=== PATIENT | male | born 1960 | race Caucasian/White ===

== ENCOUNTER 2024-01-07 19:59 | Emergency (ER) | payer OTHER ==
[~2024-01-07] VITALS: Ht 172.7 cm; Wt 72.6 kg
[2024-01-07] MEDS ORDERED: OLANZAPINE 10 MG VIAL IM ONE (21:31)
[2024-01-07] MEDS: OLANZAPINE 10 MG VIAL IM ONE (21:39)
[2024-01-07] MEDS ORDERED: LORAZEPAM INJ 2 MG/ML VIAL ONE (21:40)
[2024-01-07] MEDS: LORAZEPAM INJ 2 MG/ML VIAL IM ONE (21:43)
[2024-01-07 22:49] LABS: APPEARANCE,URINE CLEAR (CLEAR); BILIRUBIN,URINE NEGATIVE (NEGATIVE); BLOOD, URINE TRACE-INTA Ery/uL (NEGATIVE); COLOR,URINE OTHER (YELLOW); KETONES,URINE NEGATIVE (NEGATIVE); LEUKOCYTE ESTERASE ,URINE 3+ (NEGATIVE); NITRITE, URINE NEGATIVE (NEGATIVE); PROTEIN,URINE NEGATIVE (NEGATIVE); UGLUCOSE NEGATIVE (NEGATIVE); UROBILINOGEN,URINE 0.2 EU/dL (0.2)
[2024-01-07 23:12] LABS: AMPHETAMINE, URINE NEGATIVE (NEGATIVE); BARBITURATE, URINE NEGATIVE (NEGATIVE); BENZODIAZEPINE, URINE NEGATIVE (NEGATIVE); CANNABINOID, URINE NEGATIVE (NEGATIVE); COCCAINE, URINE NEGATIVE (NEGATIVE); OPIATE, URINE NEGATIVE (NEGATIVE); PHENCYCLIDINE SCREEN,URINE NEGATIVE (NEGATIVE)
[2024-01-07 23:33] LABS: BASOPHILS # (AUTO) 0.1 K/uL (0.0-0.2); BASOPHILS % (AUTO) 0.6 % (0.0-2.0); EOSINOPHILS # (AUTO) 0.4 K/uL (0.0-0.7); EOSINOPHILS % (AUTO) 3.3 % (0.0-6.0); HEMATOCRIT 33 % (39-51); HEMOGLOBIN 11.1 g/dL (13.5-17.5); LYMPHOCYTES # (AUTO) 1.2 K/uL (0.8-4.8); LYMPHOCYTES % (AUTO) 10.9 % (20.0-44.0); MEAN CORPUSCULAR HEMOGLOBIN 26 PG (26.0-33.0); MEAN CORPUSCULAR HGB CONC 33 g/dl (31.0-36.0); MEAN CORPUSCULAR VOLUME 78 fL (80-96); MONOCYTES # (AUTO) 0.6 K/uL (0.1-1.30); MONOCYTES % (AUTO) 5.7 % (2.0-12.0); NEUTROPHILS # (AUTO) 8.7 K/uL (1.8-8.9); NEUTROPHILS % (AUTO) 79.5 % (43.0-81.0); PLATELET COUNT (AUTO) 334 K/uL (150-450); RED BLOOD CELL COUNT(AUTO) 4.25 MIL/uL (4.5-6.0); RED CELL DISTRIBUTION WIDTH 15.9 % (11.5-15.0)
[2024-01-07 23:43] LABS: ADD URINE CULTURE YES; BACTERIA,URINE None seen /HPF (None Seen); RBC,URINE 0-2 /HPF (0-2); SQUAMOUS EPITHELIAL CELL,UR None Seen /HPF (None Seen)
[2024-01-07 23:45] LABS: CALCIUM, SERUM 8.9 mg/dL (8.5-10.1); CARBON DIOXIDE 32 mmol/L (21-32); CHLORIDE 106 mmol/L (98-107); CREATININE 1.3 mg/dL (0.6-1.3); GLUCOSE 165 mg/dL (74-106); POTASSIUM 3.6 mmol/L (3.5-5.1); SODIUM SERUM 142 mmol/L (136-145); UREA NITROGEN, BLOOD 17 mg/dL (7-18)
[2024-01-07 23:51] LABS: ALANINE AMINOTRANSFERASE 24 U/L (12-78); ALBUMIN 3.4 g/dL (3.4-5.0); ALKALINE PHOSPHATASE 84 U/L (46-116); ASPARTATE AMINOTRANSFERASE 12 U/L (15-37); BILIRUBIN,DIRECT 0.1 mg/dL (0.0-0.2); BILIRUBIN,TOTAL 0.3 mg/dL (0.2-1.0)
[2024-01-07 23:52] LABS: ACETAMINOPHEN 0 ug/ml (10-30); ALCOHOL, BLOOD < 3 mg/dL (0-10); SALICYLATE 1.2 mg/dL (2.8-20.0)
[2024-01-08] MEDS: CEPHALEXIN MONOHYDRATE 500 MG CAPSULE PO ONE (00:30)
[2024-01-08] MEDS ORDERED: OLANZAPINE 10 MG VIAL IM ONE (05:45)
[2024-01-08] MEDS: OLANZAPINE 10 MG VIAL IM ONE (05:51)
[2024-01-08] MEDS ORDERED: diphenhydrAMINE HCL 50 MG/ML VIAL ONE (09:44)
[2024-01-08] MEDS ORDERED: LORAZEPAM INJ 2 MG/ML VIAL ONE (09:44)
[2024-01-08] MEDS: diphenhydrAMINE HCL 50 MG/ML VIAL IM ONE (09:54)
[2024-01-08] MEDS: LORAZEPAM INJ 2 MG/ML VIAL IM ONE (09:54)
[2024-01-08 10:45] VITALS: BP 138/90; TEMP 98.5; O2SAT 98
== END 2024-01-08 10:46 ==
LOC: ER 20:09
DX: F03.911 Unspecified dementia, unspecified severity, with agitation (principal); N39.0 Urinary tract infection, site not specified; E11.9 Type 2 diabetes mellitus without complications; F20.9 Schizophrenia, unspecified; R45.1 Restlessness and agitation; Z20.822 Contact with and (suspected) exposure to COVID-19
CPT/HCPCS: 99291; 96372 ×3; 85025; 80048; 87086; 80076; 81001; 36415; 87426; 80143; 80320; 80307; J2060 ×2; J3490 ×2; J1200; G0480

== ENCOUNTER 2024-12-18 14:07 | Inpatient (IN) | payer OTHER ==
[~2024-12-18] VITALS: Ht 172.7 cm; Wt 72.6 kg
[2024-12-18] MEDS: IV NS 0.9% 1,000 ML BAG IV ONE ×2 (14:40→16:05)
[2024-12-18 15:00] LABS: BASOPHILS # (AUTO) 0.1 K/uL (0.0-0.2); BASOPHILS % (AUTO) 0.5 % (0.0-2.0); HEMATOCRIT 26 % (39-51); HEMOGLOBIN 8.5 g/dL (13.5-17.5); LYMPHOCYTES # (AUTO) 0.9 K/uL (0.8-4.8); MEAN CORPUSCULAR HEMOGLOBIN 22 PG (26.0-33.0); MEAN CORPUSCULAR HGB CONC 32 g/dl (31.0-36.0); MEAN CORPUSCULAR VOLUME 68 fL (80-96); MONOCYTES # (AUTO) 0.5 K/uL (0.1-1.30); MONOCYTES % (AUTO) 2.8 % (2.0-12.0); NEUTROPHILS # (AUTO) 16.3 K/uL (1.8-8.9); NEUTROPHILS % (AUTO) 91.7 % (43.0-81.0); PLATELET COUNT (AUTO) 562 K/uL (150-450); RED BLOOD CELL COUNT(AUTO) 3.86 MIL/uL (4.5-6.0); RED CELL DISTRIBUTION WIDTH 18.6 % (11.5-15.0); WHITE BLOOD COUNT (AUTO) 17.8 K/uL (4.3-11.0)
[2024-12-18] MEDS: PANTOPRAZOLE 80 MG in IV NS 0.9% 100 ML IV ONE (15:05)
[2024-12-18 15:13] LABS: CALCIUM, SERUM 9.9 mg/dL (8.5-10.1); CARBON DIOXIDE 20 mmol/L (21-32); CHLORIDE 100 mmol/L (98-107); CREATININE 1.7 mg/dL (0.6-1.3); GLUCOSE 298 mg/dL (74-106); SODIUM SERUM 139 mmol/L (136-145); UREA NITROGEN, BLOOD 69 mg/dL (7-18)
[2024-12-18] MEDS ORDERED: CLOZ25TA4 PO (15:22)
[2024-12-18] MEDS ORDERED: GLIP5TAB13 PO (15:22)
[2024-12-18] MEDS ORDERED: LORA-258 PO (15:22)
[2024-12-18] MEDS ORDERED: ACET-73 PO (15:22)
[2024-12-18] MEDS ORDERED: POLY17PO4 PO (15:22)
[2024-12-18] MEDS ORDERED: MAGN400T30 PO (15:22)
[2024-12-18] MEDS ORDERED: METF-442 PO (15:22)
[2024-12-18] MEDS ORDERED: SENN-261 PO (15:22)
[2024-12-18] MEDS ORDERED: ERGO500093 PO (15:22)
[2024-12-18] MEDS ORDERED: INSU100V27 SQ (15:22)
[2024-12-18] MEDS ORDERED: CYAN500T9 PO (15:22)
[2024-12-18] MEDS ORDERED: DEXT38GE12 PO (15:22)
[2024-12-18] MEDS ORDERED: GLUC1KIT IM (15:22)
[2024-12-18] MEDS ORDERED: CLON0.1T PO (15:22)
[2024-12-18] MEDS ORDERED: LAMO150T2 PO (15:22)
[2024-12-18] MEDS ORDERED: LEVE500T9 PO (15:22)
[2024-12-18] MEDS ORDERED: AMLO-213 PO (15:22)
[2024-12-18] MEDS ORDERED: OMEG1CAP55 PO (15:22)
[2024-12-18] MEDS ORDERED: CLOZ100T32 PO (15:22)
[2024-12-18] MEDS ORDERED: LORA-259 PO (15:22)
[2024-12-18] MEDS ORDERED: LINA5TAB PO (15:22)
[2024-12-18] MEDS ORDERED: BISA10SU11 RC (15:22)
[2024-12-18] MEDS ORDERED: CRAN300T PO (15:22)
[2024-12-18] MEDS ORDERED: NA P133E RC (15:22)
[2024-12-18] MEDS ORDERED: ACET325T53 PO (15:22)
[2024-12-18] MEDS ORDERED: DOCU250C14 PO (15:22)
[2024-12-18] MEDS ORDERED: ATOR20TA PO (15:22)
[2024-12-18] MEDS ORDERED: MAGN400O6 PO (15:22)
[2024-12-18] MEDS ORDERED: DAPA10TA PO (15:22)
[2024-12-18 15:27] LABS: ALANINE AMINOTRANSFERASE 18 U/L (12-78); ALBUMIN 3.4 g/dL (3.4-5.0); ALKALINE PHOSPHATASE 73 U/L (46-116); ASPARTATE AMINOTRANSFERASE 14 U/L (15-37); BILIRUBIN,DIRECT 0.1 mg/dL (0.0-0.2); BILIRUBIN,TOTAL 0.3 mg/dL (0.2-1.0); LIPASE 39 U/L (16-77); NT-PRO BNP 312 pg/mL (0-125)
[2024-12-18] MEDS: PANTOPRAZOLE 80 MG in IV NS 0.9% 500 ML IV ONE (15:29)
[2024-12-18 15:34] LABS: INR 1.1 (0.91-1.10); PARTIAL THROMBOPLASTIN TIME 23.1 SEC (24.3-34.3); PROTHROMBIN TIME 11.6 SECS (9.2-11.1)
[2024-12-18] MEDS ORDERED: ONDANSETRON HCL/PF 4 MG/2 ML VIAL ONE (15:59)
[2024-12-18] MEDS: ONDANSETRON HCL/PF - ER 4 MG/2 ML VIAL IV ONE (16:05)
[2024-12-18] MEDS: INSULIN REGULAR, HUMAN 100 UNIT/ML 10 ML VIAL SQ ONE (16:05)
[2024-12-18 20:00] VITALS: BP 146/82; TEMP 98.2; O2SAT 98
[2024-12-18] MEDS ORDERED: ONDANSETRON HCL/PF 4 MG/2 ML VIAL IVP PRN (20:00)
[2024-12-18 21:02] LABS: ANISOCYTOSIS 1+; BAND % (MANUAL) 1 % (0.0-5.0); LYMPHOCYTES % (MANUAL) 12 % (16-48); MONOCYTES % (MANUAL) 1 % (0-11.0); NEUTROPHILS % (MANUAL) 86 (42-76); OVALOCYTES 1+
[2024-12-18] MEDS: IV NS 0.9% 1,000 ML IV SCH (21:06)
[2024-12-18] MEDS ORDERED: LEVETIRACETAM (500MG) 500 MG/5 ML VIAL IV ONE (21:22)
[2024-12-18] MEDS: LEVETIRACETAM (500MG) 500 MG in IV NS 0.9% 100 ML IV SCH (21:33)
[2024-12-18 23:45] VITALS: BP 143/64; TEMP 98; O2SAT 97
[2024-12-19] VITALS (14 sets, daily range): BP systolic 115–175; BP diastolic 47–84; TEMP 97.8–98.6; O2SAT 96–100
[2024-12-19] MEDS ORDERED: CLONIDINE HCL 0.1 MG TABLET PO PRN (00:30)
[2024-12-19 00:52] LABS: HEMOGLOBIN 6.3 g/dL (13.5-17.5)
[2024-12-19] MEDS: BLOOD SUGAR DIAGNOSTIC 1 EACH STRIP IN SCH (02:19)
[2024-12-19 06:50] LABS: BASOPHILS % (AUTO) 0.2 % (0.0-2.0); HEMATOCRIT 24 % (39-51); HEMOGLOBIN 7.5 g/dL (13.5-17.5); LYMPHOCYTES % (AUTO) 9.1 % (20.0-44.0); MEAN CORPUSCULAR HEMOGLOBIN 22 PG (26.0-33.0); MEAN CORPUSCULAR HGB CONC 32 g/dl (31.0-36.0); MEAN CORPUSCULAR VOLUME 70 fL (80-96); MONOCYTES # (AUTO) 1.1 K/uL (0.1-1.30); MONOCYTES % (AUTO) 9.4 % (2.0-12.0); NEUTROPHILS # (AUTO) 9.1 K/uL (1.8-8.9); NEUTROPHILS % (AUTO) 81.3 % (43.0-81.0); PLATELET COUNT (AUTO) 384 K/uL (150-450); RED BLOOD CELL COUNT(AUTO) 3.35 MIL/uL (4.5-6.0); RED CELL DISTRIBUTION WIDTH 19.8 % (11.5-15.0); WHITE BLOOD COUNT (AUTO) 11.2 K/uL (4.3-11.0)
[2024-12-19 07:06] LABS: CALCIUM, SERUM 8.3 mg/dL (8.5-10.1); CREATININE 1.2 mg/dL (0.6-1.3); MAGNESIUM 2.3 mg/dL (1.8-2.4); POTASSIUM 3.2 mmol/L (3.5-5.1)
[2024-12-19] MEDS: PANTOPRAZOLE 40 MG VIAL IV SCH (08:55)
[2024-12-19] MEDS: LORAZEPAM 0.5 MG TABLET PO SCH (09:00)
[2024-12-19] MEDS: CYANOCOBALAMIN 500 MCG TABLET PO SCH (09:00)
[2024-12-19] MEDS: CLOZAPINE 25 MG TABLET PO SCH (09:00)
[2024-12-19] MEDS ORDERED: Medication Not On Formulary EA (Lamotrigine (Lamictal) 150 MG) PO SCH (09:00)
[2024-12-19] MEDS: DAPAGLIFLOZIN PROPANEDIOL 10 MG TABLET PO SCH (09:00)
[2024-12-19] MEDS: LamoTRIgine 100 MG TABLET PO SCH (09:00)
[2024-12-19] MEDS: AMLODIPINE BESYLATE 10 MG TABLET PO SCH (09:00)
[2024-12-19] MEDS: LINAGLIPTIN 5 MG TABLET PO SCH (09:00)
[2024-12-19] MEDS: POTASSIUM CL. PREMIX PERIPHER. 50 ML IV SCH (11:32)
[2024-12-19] MEDS: IV 1/2NS 1000 ML 1,000 ML IV SCH (11:35)
[2024-12-19] MEDS ORDERED: ANESTHESIA TRAY IN PYXIS 1 EA TRAY MC ONE ×2 (12:02→13:53)
[2024-12-19] MEDS: LORAZEPAM 1 MG TABLET PO SCH (13:00)
[2024-12-19] MEDS: TAMSULOSIN 0.4 MG CAP.SR.24H PO SCH (14:30)
[2024-12-19 18:05] LABS: HEMOGLOBIN 6.9 g/dL (13.5-17.5)
[2024-12-19 19:08] LABS: HEMOGLOBIN 6.8 g/dL (13.5-17.5)
[2024-12-19] MEDS: ATORVASTATIN 10 MG TABLET PO SCH (21:05)
[2024-12-19] MEDS: CLOZAPINE 100 MG TABLET PO SCH (21:05)
[2024-12-19] MEDS ORDERED: Medication Not On Formulary EA (Atorvastatin Calcium (Lipitor) 20 MG) PO SCH (22:00)
[2024-12-20 00:31] VITALS: BP 118/53; TEMP 98.6
[2024-12-20 06:51] LABS: CREATININE, URINE 16.8 MG/DL (30.0-125.0); URINE TOTAL PROTEIN 14.2 mg/dL (0-11.9)
[2024-12-20 07:05] LABS: APPEARANCE,URINE CLEAR (CLEAR); BILIRUBIN,URINE NEGATIVE (NEGATIVE); BLOOD, URINE TRACE-INTA Ery/uL (NEGATIVE); COLOR,URINE YELLOW (YELLOW); KETONES,URINE TRACE mg/dL (NEGATIVE); LEUKOCYTE ESTERASE ,URINE TRACE (NEGATIVE); NITRITE, URINE NEGATIVE (NEGATIVE); PH,URINE 6.5 (5.0-8.0); PROTEIN,URINE NEGATIVE (NEGATIVE); UGLUCOSE 3+ mg/dL (NEGATIVE); UROBILINOGEN,URINE 0.2 EU/dL (0.2)
[2024-12-20 07:27] LABS: ADD URINE CULTURE YES; BACTERIA,URINE Few /HPF (None Seen); SQUAMOUS EPITHELIAL CELL,UR Few /HPF (None Seen)
[2024-12-20 07:30] VITALS: BP 94/74; TEMP 97.9; O2SAT 94
[2024-12-20] MEDS: LEVETIRACETAM (250 MG) 250 MG TABLET PO SCH (08:58)
[2024-12-20] MEDS: PANTOPRAZOLE 40 MG TABLET.DR PO SCH (08:58)
[2024-12-20] MEDS: CIPROFLOXACIN HCL 500 MG TABLET PO SCH (08:58)
[2024-12-20 09:52] LABS: EOSINOPHIL,URINE None Seen
[2024-12-20 12:15] LABS: BASOPHILS # (AUTO) 0.1 K/uL (0.0-0.2); BASOPHILS % (AUTO) 0.8 % (0.0-2.0); EOSINOPHILS # (AUTO) 0.1 K/uL (0.0-0.7); EOSINOPHILS % (AUTO) 0.6 % (0.0-6.0); HEMATOCRIT 24 % (39-51); HEMOGLOBIN 7.9 g/dL (13.5-17.5); LYMPHOCYTES # (AUTO) 1.9 K/uL (0.8-4.8); LYMPHOCYTES % (AUTO) 16.8 % (20.0-44.0); MEAN CORPUSCULAR HEMOGLOBIN 23 PG (26.0-33.0); MEAN CORPUSCULAR HGB CONC 33 g/dl (31.0-36.0); MEAN CORPUSCULAR VOLUME 71 fL (80-96); MONOCYTES # (AUTO) 0.9 K/uL (0.1-1.30); MONOCYTES % (AUTO) 7.7 % (2.0-12.0); NEUTROPHILS # (AUTO) 8.4 K/uL (1.8-8.9); NEUTROPHILS % (AUTO) 74.1 % (43.0-81.0); PLATELET COUNT (AUTO) 326 K/uL (150-450); RED BLOOD CELL COUNT(AUTO) 3.42 MIL/uL (4.5-6.0); RED CELL DISTRIBUTION WIDTH 20.3 % (11.5-15.0); WHITE BLOOD COUNT (AUTO) 11.4 K/uL (4.3-11.0)
[2024-12-20 12:35] LABS: CALCIUM, SERUM 8.3 mg/dL (8.5-10.1); CREATININE 0.9 mg/dL (0.6-1.3); MAGNESIUM 2.3 mg/dL (1.8-2.4); PHOSPHORUS 2.5 mg/dL (2.5-4.9); POTASSIUM 3.4 mmol/L (3.5-5.1)
[2024-12-20 20:00] VITALS: BP 124/54; TEMP 98.1; O2SAT 98
[2024-12-20] MEDS: IV 1/2NS 1000 ML 1,000 ML IV PRN (21:27)
[2024-12-20] MEDS ORDERED: DEXTROSE 50%-WATER 50 ML DISP.SYRIN IV PRN (21:30)
[2024-12-20] MEDS: INSULIN REGULAR, HUMAN 100 UNIT/ML 3 ML VIAL SQ PRN (22:09)
[2024-12-20] MEDS: BLOOD SUGAR DIAGNOSTIC 1 EACH STRIP IN SCH (22:10)
[2024-12-21 01:02] LABS: HEMOGLOBIN 7.9 g/dL (13.5-17.5)
[2024-12-21 08:00] VITALS: BP 161/71; TEMP 98.6; O2SAT 99
[2024-12-21 08:53] LABS: HEMOGLOBIN 8.6 g/dL (13.5-17.5)
[2024-12-21] MEDS: CLOZAPINE 25 MG TABLET PO STA (12:44)
[2024-12-21] MEDS: LORAZEPAM 1 MG TABLET PO STA (16:17)
[2024-12-21] MEDS: NICOTINE PATCH (21MG) 21 MG PATCH.TD24 TD SCH (16:51)
[2024-12-21 17:36] LABS: HEMOGLOBIN 8.6 g/dL (13.5-17.5)
[2024-12-21 20:00] VITALS: BP 109/73; TEMP 98.2; O2SAT 95
[2024-12-21] MEDS: CLOZAPINE 100 MG TABLET PO SCH (21:36)
[2024-12-22 00:20] LABS: HEMOGLOBIN 8.3 g/dL (13.5-17.5)
[2024-12-22] MEDS: BISACODYL SUPP (10 MG) 10 MG/SUPP.RECT SUPP.RECT RC PRN (06:32)
[2024-12-22 07:01] LABS: BASOPHILS % (AUTO) 0.5 % (0.0-2.0); EOSINOPHILS # (AUTO) 0.3 K/uL (0.0-0.7); EOSINOPHILS % (AUTO) 4.5 % (0.0-6.0); HEMATOCRIT 28 % (39-51); HEMOGLOBIN 8.9 g/dL (13.5-17.5); LYMPHOCYTES # (AUTO) 1.7 K/uL (0.8-4.8); LYMPHOCYTES % (AUTO) 24.4 % (20.0-44.0); MEAN CORPUSCULAR HEMOGLOBIN 23 PG (26.0-33.0); MEAN CORPUSCULAR HGB CONC 32 g/dl (31.0-36.0); MEAN CORPUSCULAR VOLUME 72 fL (80-96); MONOCYTES # (AUTO) 0.8 K/uL (0.1-1.30); MONOCYTES % (AUTO) 11.2 % (2.0-12.0); NEUTROPHILS # (AUTO) 4.3 K/uL (1.8-8.9); NEUTROPHILS % (AUTO) 59.4 % (43.0-81.0); PLATELET COUNT (AUTO) 353 K/uL (150-450); RED BLOOD CELL COUNT(AUTO) 3.83 MIL/uL (4.5-6.0); RED CELL DISTRIBUTION WIDTH 20.2 % (11.5-15.0); WHITE BLOOD COUNT (AUTO) 7.2 K/uL (4.3-11.0)
[2024-12-22 08:18] LABS: CREATININE 1.1 mg/dL (0.6-1.3); MAGNESIUM 2.6 mg/dL (1.8-2.4); PHOSPHORUS 4.5 mg/dL (2.5-4.9); POTASSIUM 3.7 mmol/L (3.5-5.1)
[2024-12-22] MEDS: CLOZAPINE 25 MG TABLET PO SCH ×2 (08:45→17:31)
[2024-12-22 10:16] LABS: ANISOCYTOSIS 1+; EOSINOPHILS % (MANUAL) 2 % (0-4); LYMPHOCYTES % (MANUAL) 28 % (16-48); MONOCYTES % (MANUAL) 14 % (0-11.0); NEUTROPHILS % (MANUAL) 56 (42-76); PLATELET ESTIMATE ADEQUATE
[2024-12-22] MEDS ORDERED: CIPR-262 PO (11:04)
[2024-12-22] MEDS ORDERED: CLOZ25TA4 PO (11:04)
[2024-12-22] MEDS ORDERED: CLOZ100T32 PO (11:04)
[2024-12-22] MEDS: LORAZEPAM 0.5 MG TABLET PO SCH (12:28)
[2024-12-22 20:00] VITALS: BP 108/69; TEMP 98.1; O2SAT 98
[2024-12-23] MEDS: ACETAMINOPHEN 325 MG TABLET PO PRN (01:55)
[2024-12-23 07:00] VITALS: BP 139/77; TEMP 97.5; O2SAT 99
[2024-12-23 09:27] VITALS: BP 139/77
[2024-12-23] MEDS: CLOZAPINE 25 MG TABLET PO SCH (12:09)
== END 2024-12-23 13:28 | DRG 242 ==
LOC: ER 14:15 → TELE 18:30 → MED 12-19 13:23
PROVIDERS: ATTEND Internal Medicine
PROC: 0DB58ZX Excision of Esophagus, Via Natural or Artificial Opening Endoscopic, Diagnostic (ICD-10-PCS; 2024-12-19)
PROC: 30233N1 Transfusion of Nonautologous Red Blood Cells into Peripheral Vein, Percutaneous Approach (ICD-10-PCS; 2024-12-19)
PROC: 0DB98ZX Excision of Duodenum, Via Natural or Artificial Opening Endoscopic, Diagnostic (ICD-10-PCS; principal; 2024-12-19 12:00)
DX: K22.11 Ulcer of esophagus with bleeding (principal); E87.0 Hyperosmolality and hypernatremia; N17.9 Acute kidney failure, unspecified; E11.22 Type 2 diabetes mellitus with diabetic chronic kidney disease; D62 Acute posthemorrhagic anemia; K29.81 Duodenitis with bleeding; D50.9 Iron deficiency anemia, unspecified; F25.0 Schizoaffective disorder, bipolar type; E78.5 Hyperlipidemia, unspecified; G40.909 Epilepsy, unspecified, not intractable, without status epilepticus; I12.9 Hypertensive chronic kidney disease with stage 1 through stage 4 chronic kidney disease, or unspecified chronic kidney disease; N18.9 Chronic kidney disease, unspecified; E87.6 Hypokalemia; N31.9 Neuromuscular dysfunction of bladder, unspecified; N39.0 Urinary tract infection, site not specified; Z79.4 Long term (current) use of insulin; Z79.84 Long term (current) use of oral hypoglycemic drugs; F03.93 Unspecified dementia, unspecified severity, with mood disturbance; R53.1 Weakness; D72.829 Elevated white blood cell count, unspecified; F39 Unspecified mood [affective] disorder
CPT/HCPCS: 36415; 70450-TC; 71045-TC; 74018; 76770-TC; 80048-TC; 80076-TC; 80202-TC; 81001; 82010-TC; 82570-TC; 82962-TC; 83690-TC; 83735-TC; 83880; 84100-TC; 84300-TC; 84484-TC; 85025-TC; 85027-TC; 85730-TC; 86850-TC; 87081-TC; 87086-TC; A4223; G0378; J0690; J1815; J1953; J2405; J2470; J2704; J3480; J3490; J7030; J7040; P9016